=== PATIENT | male | born 1960 | race Caucasian/White ===

== ENCOUNTER 2017-01-23 16:33 | Emergency (ER) | payer OTHER ==
[~2017-01-23] VITALS: Ht 185.4 cm; Wt 90.9 kg
[2017-01-23 16:37] VITALS: BP 112/70
[2017-01-23 18:46] LABS: HEP B SURF. AB 3.4 mIU/mL (0.0-10.0)
[2017-01-23 19:26] LABS: HIV 1&2 ANTIBODY SCREEN Nonreactive (Nonreactive); HIV-1 p24 ANTIGEN Nonreactive (Nonreactive)
== END 2017-01-23 18:26 | disposition home or self-care (01) ==
LOC: ED 18:20
DX: S80.212A Abrasion, left knee, initial encounter (principal); X58.XXXA Exposure to other specified factors, initial encounter; Y93.89 Activity, other specified; Y92.89 Other specified places as the place of occurrence of the external cause; Y99.8 Other external cause status
CPT/HCPCS: 36415; 86703; 86705; 86706; 86803; 87340; 87899; 99284; G0435

== ENCOUNTER 2017-01-25 14:56 | Emergency (ER) | payer OTHER ==
[~2017-01-25] VITALS: Ht 185.4 cm; Wt 94.4 kg
[2017-01-25 15:06] VITALS: BP 112/76
[2017-01-25] MEDS ORDERED: HEPATITIS B IMMUNE GLOBULIN 1 ML IM ONE (15:30)
== END 2017-01-25 15:53 | disposition home or self-care (01) ==
LOC: ED 15:30
DX: Z00.8 Encounter for other general examination (principal)
CPT/HCPCS: 99281

== ENCOUNTER 2017-01-26 13:17 | Emergency (ER) | payer OTHER ==
[~2017-01-26] VITALS: Ht 185.4 cm; Wt 95.7 kg
[2017-01-26 13:25] VITALS: BP 112/84
[2017-01-26] MEDS ORDERED: DIPH,PERTUSS(ACELL),TET VAC/PF 0.5 ML IM-VACC ONE ×2 (14:14→14:30)
[2017-01-26] MEDS ORDERED: HEPATITIS B IMMUNE GLOBULIN 1 ML IM ONE (14:30)
== END 2017-01-26 14:42 | disposition home or self-care (01) ==
LOC: ED 14:40
DX: Z20.5 Contact with and (suspected) exposure to viral hepatitis (principal)
CPT/HCPCS: 90371; 90471; 90715; 96372

== ENCOUNTER → 2017-02-23 | Outpatient (CLI) | payer OTHER | END | disposition home or self-care (01) | LOC: RAD 13:42 | PROVIDERS: ATTEND Otolaryngology | DX: D14.0 Benign neoplasm of middle ear, nasal cavity and accessory sinuses (principal); J32.0 Chronic maxillary sinusitis; M79.89 Other specified soft tissue disorders; J34.2 Deviated nasal septum | CPT/HCPCS: 70486 ==

== ENCOUNTER → 2017-04-08 | Outpatient (CLI) | payer OTHER ==
[2017-04-08 15:48] LABS: HIV 1&2 ANTIBODY SCREEN Nonreactive (Nonreactive); HIV-1 p24 ANTIGEN Nonreactive (Nonreactive)
== END | disposition home or self-care (01) ==
LOC: LAB 15:08
PROVIDERS: ATTEND Internal Medicine Hematology & Oncology
DX: Z11.3 Encounter for screening for infections with a predominantly sexual mode of transmission (principal)
CPT/HCPCS: 36415; 86703; 87899; G0435

== ENCOUNTER → 2017-05-13 | Outpatient (CLI) | payer OTHER | END | disposition home or self-care (01) | LOC: LAB 10:45 | PROVIDERS: ATTEND Internal Medicine Hematology & Oncology | DX: Z11.4 Encounter for screening for human immunodeficiency virus [HIV] (principal) | CPT/HCPCS: 36415; 86703; 87899; G0435 ==

== ENCOUNTER → 2017-08-06 | Outpatient (CLI) | payer OTHER | END | disposition home or self-care (01) | LOC: LAB 13:56 | PROVIDERS: ATTEND Internal Medicine Hematology & Oncology | DX: Z11.59 Encounter for screening for other viral diseases (principal); Z11.4 Encounter for screening for human immunodeficiency virus [HIV] | CPT/HCPCS: 36415; 84460; 86803; 87806; G0475 ==

== ENCOUNTER 2020-03-03 19:14 | Inpatient (IN) | payer BC, OTHER ==
[~2020-03-03] VITALS: Ht 185.4 cm; Wt 93.7 kg
--- NOTE | 2020-03-03 19:34 | NUR ---
PT BIB [facility] FOR SUDDEN ONSET VISION CHANGE AND DIZZINESS AT [id number]. PT WAS DRIVING AND HAD VISION CHANGES AND "SEA SICK FEELING. PT DENIES MED HX [facility] CONTA[facility] ANALYST 116. MD AT [facility]. RIGHT PUPIL 5 MM LEFT PUPIL 3 MM. [facility] 69 IN ED. CODE NEURO CALLED. PT JUST BACL FROM CT. VSS. PT STILL HAS DOUBLE VISION. PLACED ON MONITORS. CALL LIGHT IN REACH
[2020-03-03] MEDS ORDERED: VILA40TA PO (19:40)
[2020-03-03] MEDS ORDERED: LISD20CA4 PO (19:40)
[2020-03-03 19:56] LABS: BASOPHILS % (AUTO) 0 % (0-1); EOSINOPHILS % (AUTO) 2 % (1-7); LYMPHOCYTES % (AUTO) 35 % (22-44); MEAN CORPUSCULAR HEMOGLOBIN 30.8 pg (27.5-34.5); MEAN CORPUSCULAR HGB CONC 33.2 g/dL (33.2-36.2); MEAN PLATELET VOLUME 9.4 fL (7.4-10.4); MONOCYTES % (AUTO) 7 % (2-9); NEUTROPHILS % (AUTO) 57 % (42-75); PLATELET COUNT 248 x10^3/uL (130-400); RED BLOOD COUNT 4.42 x10^6/uL (4.38-5.82); RED CELL DISTRIBUTION WIDTH 13.4 % (9.4-14.8)
[2020-03-03 19:59] LABS: MD NO
[2020-03-03 20:18] LABS: INTERNATIONAL NORMALIZED RATIO 1.01 (0.93-1.1); PROTHROMBIN TIME 10.7 Seconds (9.6-11.5)
[2020-03-03] MEDS ORDERED: ALTEPLASE IV ONE (20:30)
[2020-03-03] MEDS ORDERED: ALTEPLASE 8 MG in SYRINGE 1 EA IVPush ONE (20:30)
[2020-03-03] MEDS ORDERED: OMNIPAQUE 350 MG/ML, 100ML BOTTLE ONE (20:50)
--- NOTE | 2020-03-03 21:02 | NUR ---
LATE ENTRY: PT EVALUATED BY DR MACK. PT TO RECIEVE TPA WHEN COAGS COME BACK NORMAL. TPA BOLUS GIVEN AT 2014. DRIP STARTED AT 2018. VSS. NEURO EXAM DOCUMENTED. AT VSS. ATTEMPTED TO WAKE PT FOR NEURO EXAM. PT WAS AROUSE ALIGHTLY TO PAINFUL STIMULI BUT WOULD NOT FOLLOW COMMANDS. NOTIFIED AND [address] ORDERED. PT BECAME MORE AWAKE ON WAY TO CT BUT WAS SLIGHTLY CONFUSED TO DATE AND PLACE. AT NEXT NEURO EXAM 2048. PT NOW AAOX4 AND DROWSY BUT AROUSABLE. NEURO EXAM COMPLETED AND DOCUMENTED. REPORT TO JES RAHMAN
--- NOTE | 2020-03-03 21:05 | NUR ---
PT MOVED FROM ED 15 TO TRAUMA 04. PT DROWSY BUT COOPERATIVE WITH COMMANDS AT THIS TIME. PT ON VS AND CARDIAC MONITORS WITH Q [address]. REPORT OF PT FROM JOSIAH MARIE AND ASSUMING CARE OF PT AT THIS TIME. PT IS RECEIVING TPA ADMINISTRATION VIA IV PUMP. RATE AND DOSE OF INFUSION VERIFIED BEFORE ASSUMING CARE OF PT. MARYCHUY, JR. SYSTEMS ADMINISTRATOR, AT FOR VERIFICATION OF DOSAGE.
--- NOTE | 2020-03-03 21:13 | NUR ---
REPORT OF PT TO JOSIAH BYERS; ALL QUESTIONS ANSWERED. DR REED AT FOR PT HISTORY AND ASSESSMENT. PT EDUCATED ON TRANSFER TO ICU FROM FLOOR AND VERBALIZES UNDERSTANDING.
[2020-03-03] MEDS ORDERED: ENALAPRILAT 1.25 MG/ML, 2ML IV PRN (21:30)
[2020-03-03] MEDS ORDERED: LABETALOL 5MG/ML, 20ML IV PRN (21:30)
[2020-03-03] MEDS: ATORVASTATIN 80 MG TABLET PO SCH (21:30)
[2020-03-03] MEDS ORDERED: ACETAMINOPHEN 325 MG TABLET PO PRN (21:30)
[2020-03-03] MEDS ORDERED: ONDANSETRON 2MG/ML, 2ML IVPush PRN (21:30)
[2020-03-03 21:45] VITALS: BP 146/83
[2020-03-03 22:00] VITALS: BP 146/83
--- NOTE | 2020-03-03 22:06 | NUR ---
PT VS DOCUMENTED ON NEURO POST TPA CHECKSHEET. CHECKSHEET PERFORMED PER PROTOCOL AND TRANSPORTED UP WITH PT CHART.
[2020-03-03 22:15] VITALS: BP 142/79
[2020-03-03 22:30] VITALS: BP 139/85
[2020-03-03 23:15] VITALS: BP 139/85
[2020-03-03 23:30] VITALS: BP 125/73
[2020-03-04] VITALS (17 sets, daily range): BP systolic 92–152; BP diastolic 55–102
[2020-03-04 04:47] LABS: CHOL/HDL RATIO 2.8
[2020-03-04 04:48] LABS: LDL/HDL RATIO 1.5 (0.5-3.0)
[2020-03-04 11:14] LABS: MICROSCOPIC AUTO
[2020-03-04] MEDS: ATORVASTATIN 80 MG TABLET PO SCH (21:00)
[2020-03-05 04:48] VITALS: BP 121/79
[2020-03-05] MEDS: ASPIRIN 81 MG TABLET EC PO SCH (12:45)
[2020-03-05] MEDS: CLOPIDOGREL 75 MG TABLET PO SCH (12:45)
[2020-03-05 12:48] VITALS: BP 115/70
[2020-03-05 14:31] VITALS: BP 119/74
[2020-03-05 18:30] VITALS: BP 127/83
[2020-03-05] MEDS: ATORVASTATIN 80 MG TABLET PO SCH ×2 (21:00→21:38)
[2020-03-06 02:01] VITALS: BP 115/75
[2020-03-06] MEDS ORDERED: ALTEPLASE 1 ML ONE (03:09)
[2020-03-06] MEDS: ASPIRIN 81 MG TABLET EC PO SCH (06:12)
[2020-03-06 06:44] VITALS: BP 119/81
[2020-03-06] MEDS: CLOPIDOGREL 75 MG TABLET PO SCH (09:50)
[2020-03-06] MEDS ORDERED: ASPI81TA45 PO (10:51)
[2020-03-06] MEDS ORDERED: CLOP75TA PO (10:51)
[2020-03-06] MEDS ORDERED: ATOR-2 PO (10:51)
== END 2020-03-06 13:53 | disposition home or self-care (01) | DRG 65 ==
LOC: ED 21:35 → EDIP 21:36 → CCU 21:39 → 4WST 03-05 14:46 → DCLOUNGE 03-06 13:34
PROVIDERS: ADMIT Family Medicine; ATTEND Family Medicine
PROC: 3E04317 Introduction of Other Thrombolytic into Central Vein, Percutaneous Approach (ICD-10-PCS; principal; 2020-03-03)
PROC: 0T9B70Z Drainage of Bladder with Drainage Device, Via Natural or Artificial Opening (ICD-10-PCS; 2020-03-04)
DX: I61.3 Nontraumatic intracerebral hemorrhage in brain stem (principal); E87.1 Hypo-osmolality and hyponatremia; D64.9 Anemia, unspecified; E78.5 Hyperlipidemia, unspecified; F32.9 Major depressive disorder, single episode, unspecified; Z79.82 Long term (current) use of aspirin; Z90.49 Acquired absence of other specified parts of digestive tract; H02.402 Unspecified ptosis of left eyelid; H49.02 Third [oculomotor] nerve palsy, left eye
CPT/HCPCS: 36415; 70450; 70496; 70498; 70551; 80047; 80061; 81001; 85025; 85610; 85730; 87081; 93005; 93306; G0378; J2997; Q9967; 92523-GN

== ENCOUNTER → 2020-03-21 | Outpatient (CLI) | payer BC ==
[~2020-03-21] MED LIST: ASPI81TA45 PO; ATOR-2 PO; CLOP75TA PO; LISD20CA4 PO; VILA40TA PO
== END | disposition home or self-care (01) ==
LOC: STAR 09:18
PROVIDERS: ATTEND Anesthesiology
DX: Z20.828 Contact with and (suspected) exposure to other viral communicable diseases (principal)
CPT/HCPCS: 87635

== ENCOUNTER 2020-03-26 07:57 | Observation (INO) | payer BC ==
[~2020-03-26] VITALS: Ht 185.4 cm; Wt 93.5 kg
[2020-03-26] MEDS ORDERED: SODIUM CHLORIDE 0.9% 1,000 ML IV ONE (08:30)
[2020-03-26 08:31] VITALS: BP 136/93
[2020-03-26 09:11] LABS: ANION GAP 4 mmol/L (5-15); CALCIUM 9.7 mg/dL (8.5-10.1); CHLORIDE 114 mmol/L (98-107); CREATININE 1.49 mg/dL (0.7-1.3)
[2020-03-26 09:14] LABS: BASOPHILS % (AUTO) 1 % (0-1); EOSINOPHILS % (AUTO) 2 % (1-7); LYMPHOCYTES % (AUTO) 25 % (22-44); MEAN CORPUSCULAR HEMOGLOBIN 30.9 pg (27.5-34.5); MEAN CORPUSCULAR HGB CONC 33.5 g/dL (33.2-36.2); MEAN PLATELET VOLUME 9.5 fL (7.4-10.4); MONOCYTES % (AUTO) 6 % (2-9); NEUTROPHILS % (AUTO) 66 % (42-75); PLATELET COUNT 284 x10^3/uL (130-400); RED BLOOD COUNT 4.98 x10^6/uL (4.38-5.82); RED CELL DISTRIBUTION WIDTH 13.4 % (9.4-14.8)
[2020-03-26 09:15] LABS: MD NO
[2020-03-26] MEDS ORDERED: MIDAZOLAM 1 MG/ML, 2ML ONE (10:33)
[2020-03-26] MEDS ORDERED: PROPOFOL 50 ML ONE (10:33)
[2020-03-26] MEDS ORDERED: FENTANYL PF 250 MCG/5ML ONE (10:33)
[2020-03-26] MEDS ORDERED: LIDOCAINE 1%, 20ML ONE (10:43)
[2020-03-26] MEDS ORDERED: SUCCINYLCHOLINE 20 MG/ML, 10ML ONE (10:44)
[2020-03-26] MEDS ORDERED: ONDANSETRON 2MG/ML, 2ML ONE (10:44)
[2020-03-26] MEDS ORDERED: ROCURONIUM 10 MG/ML,10ML ONE (10:44)
[2020-03-26] MEDS ORDERED: DEXAMETHASONE 4 MG/ML, 1ML ONE (10:44)
[2020-03-26] MEDS ORDERED: CEFAZOLIN 1,000 MG ONE (10:44)
[2020-03-26] MEDS ORDERED: LABETALOL 20 MG/4 ML IVPush PRN (12:00)
[2020-03-26] MEDS ORDERED: ACETAMINOPHEN 650 MG/20.3 ML UDC PO PRN (12:00)
[2020-03-26] MEDS ORDERED: ACETAMINOPHEN 650 MG SUPP PR PRN (12:00)
[2020-03-26] MEDS ORDERED: hydrALAzine 20 MG/ML, 1ML IVPush PRN (12:00)
[2020-03-26] MEDS ORDERED: ONDANSETRON 2MG/ML, 2ML IVPush PRN (12:00)
[2020-03-26] MEDS ORDERED: CLOPIDOGREL 300 MG TABLET ONE (12:34)
[2020-03-26] MEDS: SODIUM CHLORIDE 0.9% 1,000 ML IV SCH ×2 (14:53→22:00)
[2020-03-26 15:21] VITALS: BP 126/79
[2020-03-26 21:39] VITALS: BP 132/80
[2020-03-27 02:31] VITALS: BP 116/72
[2020-03-27 07:54] VITALS: BP 120/72
[2020-03-27] MEDS: SODIUM CHLORIDE 0.9% 1,000 ML IV SCH (08:00)
[2020-03-27 09:00] VITALS: BP 102/64
[2020-03-27] MEDS ORDERED: CLOPIDOGREL 75 MG TABLET PO SCH (09:00)
[2020-03-27] MEDS ORDERED: ASPIRIN 81 MG TABLET EC PO SCH (09:00)
[2020-03-27] MEDS ORDERED: ATORVASTATIN 80 MG TABLET PO SCH (21:00)
== END 2020-03-27 10:00 | disposition home or self-care (01) ==
LOC: CACL 07:57 → 5SO 14:45 → CACL 23:46 → 5SO 23:53 → DCLOUNGE 03-27 09:50
PROVIDERS: ADMIT Internal Medicine Cardiovascular Disease; ATTEND Internal Medicine Cardiovascular Disease
DX: I63.9 Cerebral infarction, unspecified (principal); Q21.1 Atrial septal defect; Z79.899 Other long term (current) drug therapy
CPT/HCPCS: 36415; 76937; 80048; 85025; 85347; 93005; 93308; 93312; 93325; 93582; C1760; C1769; C1817; C1894; G0378; J0330; J0690; J1100; J2250; J2405; J2704; J3010; J3490

== ENCOUNTER 2020-04-26 07:47 | Outpatient (CLI) | payer BC | END 2020-04-26 23:59 | disposition home or self-care (01) | LOC: CVU 07:47 | PROVIDERS: ATTEND Internal Medicine Cardiovascular Disease | DX: Z01.810 Encounter for preprocedural cardiovascular examination (principal); I36.1 Nonrheumatic tricuspid (valve) insufficiency; R06.02 Shortness of breath; I65.29 Occlusion and stenosis of unspecified carotid artery; Q21.1 Atrial septal defect | CPT/HCPCS: 93306 ==